=== PATIENT | female | born 2000 | race Caucasian/White ===

== ENCOUNTER 2024-10-18 13:29 | Emergency (ER) | payer OTHER, SELFPAY ==
[2024-10-18 13:37] VITALS: BP 107/67; PULSE 72; RESP 16; TEMP 36.8; O2SAT 99
--- NOTE | 2024-10-18 13:58 | ED.GENADULT ---
HPI - General Adult General Chief complaint: Upper Respiratory Infection Stated complaint: Sore Throat/Ear Problem Source: patient Mode of arrival: ambulatory Limitations: no limitations History of Present Illness HPI narrative: Pt presents for evaluation of sore throat since last night. She also has some left-sided otalgia and a cough this morning, which has since resolved. No fever, chills, nausea, vomiting, or shortness of breath. Her boyfriend was told her had a bacterial infection in the throat two days ago when he was evaluated by his primary provider. She does smoke and vape. She is not taking any medications to assist with her symptoms. Related Data Allergies Allergy/AdvReac Type Severity Reaction Status Date / Time No Known Allergies Allergy Verified 10/18/24 13:47 Review of Systems Review of Systems: CONSTITUTIONAL: Denies fever, chills, or sweats. EYES: Denies visual changes, redness, or discharge. ENT: Reports sore throat and left-sided ear pain CARDIOVASCULAR: Denies chest pain, palpitations, or edema. RESPIRATORY: Reports occasional cough this morning, since resolved. Denies shortness of breath. GASTROINTESTINAL: Denies abdominal pain, nausea, vomiting, or diarrhea. GENITOURINARY: Denies dysuria or hematuria. SKIN: Denies rash or itching. MUSCULOSKELETAL: Denies back pain, joint pain, or myalgia. NEUROLOGIC: Denies headache, numbness, dizziness, or weakness. PSYCHIATRIC: Denies anxiety or depression. [facility] Past Medical History Medical History Recurrent otitis media Surgical History Surgical History History of tympanostomy tube placement Family History Family History Mother Family history non-contributory Social History Social History Smoking status: Current every day smoker Tobacco type: cigarettes and e-cigarettes/vaping Additional living arrangements comments: with boyfriend Gender identity (if verbalized by the patient): Female Sexual Orientation (if Verbalized by the Patient): Straight or Heterosexual Spiritual care concerns: No Exam Narrative: GENERAL: Well-appearing, well-nourished, and in no acute distress. HEAD: Normocephalic, atraumatic. EYES: PERRLA and EOMI. ENT: Nares clear, no rhinorrhea or epistaxis. Mucous membranes moist. Posterior pharyngeal erythema is present. No exudate. Uvula is midline. There is scarring noted to both tympanic membranes. Left tympanic membrane is erythematous. NECK: Supple. No adenopathy or masses. No carotid bruits or JVD CHEST: Clear to auscultation. No respiratory distress. No wheezes rales or rhonchi HEART: Regular rate and rhythm. No murmur heard. Normal peripheral pulses. ABDOMEN: Soft, nontender, nondistended, normal active bowel sounds. EXTREMITIES: Normal range of motion. No edema. SKIN: Warm, dry, no rash. NEURO: No focal deficits. Alert and oriented x3. PSYCH: Normal mood and affect. Course Course Emergency Course: This is a 24-year-old female who presented for evaluation of left-sided ear pain and sore throat. Rapid strep negative. She has evidence of otitis media on exam. Will treat with Augmentin. Increase hydration. [id number] agents for symptom management. Follow up with primary provider. Go to the ER for worsening symptoms. Patient in agreement with plan of care Level of Care: Express Care Visit Vital Signs Vital signs: Vital Signs Temperature 36.8 C 10/18/24 13:37 Pulse Rate 72 10/18/24 13:37 Respiratory Rate 16 10/18/24 13:37 Blood Pressure 107/67 10/18/24 13:37 Pulse Oximetry 99 10/18/24 13:37 Oxygen Delivery Room Air 10/18/24 13:37 Temperature 36.8 C 10/18/24 13:37 Pulse Rate 72 10/18/24 13:37 Respiratory Rate 16 10/18/24 13:37 Blood Pressure 107/67 10/18/24 13:37 Pulse Oximetry 99 10/18/24 13:37 Oxygen Delivery Room Air 10/18/24 13:37 Medical Decision Making Vital Signs Vital Signs: Vital Signs Temperature 36.8 C 10/18/24 13:37 Pulse Rate 72 10/18/24 13:37 Respiratory Rate 16 10/18/24 13:37 Blood Pressure 107/67 10/18/24 13:37 Pulse Oximetry 99 10/18/24 13:37 Oxygen Delivery Room Air 10/18/24 13:37 Temperature 36.8 C 10/18/24 13:37 Pulse Rate 72 10/18/24 13:37 Respiratory Rate 16 10/18/24 13:37 Blood Pressure 107/67 10/18/24 13:37 Pulse Oximetry 99 10/18/24 13:37 Oxygen Delivery Room Air 10/18/24 13:37 Discharge Plan Discharge Clinical Impression: Pharyngitis, Otitis media Patient Disposition: Home, Self-Care Condition: Stable Instructions: Antibiotic Form, Pharyngitis (ED), Ear Infection (ED) Patient Language: Uzbek Prescriptions: New amoxicillin-pot clavulanate 875-125 mg tablet 1 tablet PO Q12H Qty: 20 0RF Follow-up/Referrals: Ashish Macedo MD [Physician] - Time of Disposition: 13:56
[2024-10-18 14:03] LABS: EDSTREPNEGPOS1 Negative (Negative)
== END 2024-10-18 13:58 | disposition home or self-care (01) ==
PROVIDERS: Emergency Provider Nurse Practitioner
DX: J02.9 Acute pharyngitis, unspecified (principal); H66.92 Otitis media, unspecified, left ear
CPT/HCPCS: 87081; 87880; 99213; G0463